=== PATIENT | female | born 1960 | race Asian ===

== ENCOUNTER 2017-08-05 13:40 | Emergency (ER) | payer OTHER ==
[~2017-08-05] VITALS: Ht 160 cm; Wt 47.6 kg
[2017-08-05] MEDS ORDERED: MULT1TAB73 PO (14:16)
[2017-08-05] MEDS ORDERED: TDAP [DIPH/PERTUSSIS/TET] 0.5 ML VIAL IM ONE ×2 (14:58→15:00)
[2017-08-05 16:03] VITALS: BP 122/75
== END 2017-08-05 16:06 | disposition home or self-care (01) ==
LOC: ER 13:50
DX: S02.81XA Fracture of other specified skull and facial bones, right side, initial encounter for closed fracture (principal); S02.40EA Zygomatic fracture, right side, initial encounter for closed fracture; R51 Headache; W19.XXXA Unspecified fall, initial encounter; Y93.55 Activity, bike riding; Y92.89 Other specified places as the place of occurrence of the external cause; Y99.8 Other external cause status
CPT/HCPCS: 70450; 70486; 90471; 90715; 99284; A4606; Z7610